=== PATIENT | female | born 1955 | race Caucasian/White ===

== ENCOUNTER 2021-05-08 08:36 | Emergency (ER) | payer BC ==
[~2021-05-08] VITALS: Ht 175.3 cm; Wt 102.1 kg
[2021-05-08] MEDS ORDERED: CEPHALEXIN500 MG PO (09:58)
[2021-05-08 10:11] VITALS: BP 153/95
== END 2021-05-08 10:12 | disposition home or self-care (01) ==
LOC: M.ERS 08:36
DX: S01.81XA Laceration without foreign body of other part of head, initial encounter (principal); W01.198A Fall on same level from slipping, tripping and stumbling with subsequent striking against other object, initial encounter; Y93.89 Activity, other specified; Y92.89 Other specified places as the place of occurrence of the external cause; Y99.8 Other external cause status